=== PATIENT | male | born 1995 | race Caucasian/White ===

== ENCOUNTER → 2017-01-21 | Outpatient (REF) | payer SELFPAY ==
[2017-01-21 13:01] LABS: REASON FOR REVIEW COMPREHENSIVE REVIEW
== END ==
LOC: M LAB REF 12:30
PROVIDERS: ATTEND Internal Medicine Medical Oncology
DX: D56.1 Beta thalassemia (principal)

== ENCOUNTER → 2017-05-06 | Outpatient (CLI) | payer OTHER ==
--- NOTE | 2017-05-06 11:08 | REP ---
CHEST, TWO VIEWS: No comparisons. There is no evidence of acute infiltrate. No pleural effusion is seen. The heart is normal in size. The mediastinal silhouette is unremarkable. The visualized osseous structures are intact. IMPRESSION: No acute pulmonary disease. Signed by Jay Rees MD 05/06/2017 04:41 P
== END ==
LOC: M SMT 08:40
PROVIDERS: ATTEND Nurse Practitioner Adult Health
DX: R05 Cough (principal)

== ENCOUNTER → 2017-05-13 | Outpatient (CLI) | payer OTHER ==
[~2017-05-13] MED LIST: METHACHOLINE KIT (J7674) INH ONE
--- NOTE | 2017-05-13 10:45 | PFTRPT ---
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 Under protocol, methacholine was administered. At a dose of 2.5 mg (13.875 CDUs), a 33% decline in the FEV1 was noted. The PC20 of 0.55 is significant. Flow rates did return to baseline post bronchodilator administration. IMPRESSION: Positive methacholine challenge study. MTDD
== END ==
LOC: M CARPUL 09:26
PROVIDERS: ATTEND Nurse Practitioner Adult Health
DX: R05 Cough (principal)
CPT/HCPCS: 94070; J7674

== ENCOUNTER → 2017-11-17 | Outpatient (REF) | payer OTHER ==
[2017-11-17 21:27] LABS: CHLAMYDIA DNA AMPLIFICATION POSITIVE (NEGATIVE); GC DNA AMPLIFICATION NEGATIVE (NEGATIVE)
== END ==
LOC: M LAB REF 18:42
DX: R36.9 Urethral discharge, unspecified (principal)

== ENCOUNTER → 2018-07-04 | Outpatient (CLI) | payer OTHER | LOC: M RAD 14:44 | DX: M25.571 Pain in right ankle and joints of right foot (principal) | CPT/HCPCS: 73630 ==